=== PATIENT | male | born 1990 | race Caucasian/White ===

== ENCOUNTER 2018-02-26 18:33 | Emergency (ER) | payer OTHER ==
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
[2018-02-26 21:24] VITALS: BP 125/79
== END 2018-02-26 21:34 | disposition home or self-care (01) ==
PROC: 0HQ1XZZ Repair Face Skin, External Approach (ICD-10-PCS; principal; 2018-02-26)
DX: S01.81XA Laceration without foreign body of other part of head, initial encounter (principal); S02.5XXB Fracture of tooth (traumatic), initial encounter for open fracture; V18.0XXA Pedal cycle driver injured in noncollision transport accident in nontraffic accident, initial encounter; Y92.9 Unspecified place or not applicable